=== PATIENT | male | born 1945 | race Caucasian/White ===

== ENCOUNTER → 2017-03-18 | Outpatient (CLI) | payer OTHER | END | disposition home or self-care (01) | LOC: CVU 12:52 | PROVIDERS: ATTEND Internal Medicine Cardiovascular Disease | DX: I08.3 Combined rheumatic disorders of mitral, aortic and tricuspid valves (principal); I10 Essential (primary) hypertension | CPT/HCPCS: 93306 ==

== ENCOUNTER 2017-04-14 10:31 | Day surgery (SDC) | payer OTHER ==
[~2017-04-14] VITALS: Ht 175.3 cm; Wt 106.4 kg
[~2017-04-14 10:31] MED LIST: AMLO10TA2 PO; ATOR20TA PO; DIGO250T PO; FISH1CAP PO; HYDR25TA6 PO; LABE300T PO; MULT-717 PO; WARF7.5T PO
[2017-04-14] MEDS ORDERED: FENTANYL PF 100 MCG/2ML ONE (12:00)
[2017-04-14] MEDS ORDERED: VERAPAMIL 2.5 MG/ML, 2ML ONE (12:00)
[2017-04-14] MEDS ORDERED: NITROGLYCERIN 5 MG/ML, 10ML ONE (12:00)
[2017-04-14] MEDS ORDERED: LIDOCAINE 2%, 20ML ONE (12:00)
[2017-04-14] MEDS ORDERED: MIDAZOLAM 1 MG/ML, 5ML ONE (12:00)
[2017-04-14] MEDS ORDERED: HEPARIN 1,000 UNITS/ML, 10ML ONE (12:01)
[2017-04-14] MEDS ORDERED: SODIUM CHLORIDE 0.9% 1,000 ML IV SCH (13:13)
== END 2017-04-14 15:45 ==
LOC: CACL 10:31
PROVIDERS: ATTEND Internal Medicine Cardiovascular Disease
DX: I25.10 Atherosclerotic heart disease of native coronary artery without angina pectoris (principal); I10 Essential (primary) hypertension; E11.9 Type 2 diabetes mellitus without complications
CPT/HCPCS: 36415; 75716; 85610; 93458; 93567; 99156; C1769; C1894; J2250; J3010; J3490; Q9967; J1644

== ENCOUNTER 2017-08-19 04:40 | Inpatient (IN) | payer MEDICARE ==
[2017-08-18 14:12] LABS: MICROSCOPIC NOT IND
[2017-08-18 14:37] LABS: BASOPHILS # (AUTO) 0.04 x10^3/uL (0-0.1); BASOPHILS % (AUTO) 0 % (0-1); EOSINOPHILS # (AUTO) 0.21 x10^3/uL (0-0.4); EOSINOPHILS % (AUTO) 2 % (1-7); LYMPHOCYTES % (AUTO) 17 % (22-44); MD NO; MEAN CORPUSCULAR HEMOGLOBIN 32.5 pg (27.5-34.5); MEAN CORPUSCULAR HGB CONC 34.7 g/dL (33.2-36.2); MEAN CORPUSCULAR VOLUME 93.8 fL (81-97); MEAN PLATELET VOLUME 8.5 fL (7.4-10.4); MONOCYTES # (AUTO) 0.73 x10^3/uL (0.2-0.8); MONOCYTES % (AUTO) 8 % (2-9); NEUTROPHILS # (AUTO) 6.74 x10^3/uL (1.8-6.8); NEUTROPHILS % (AUTO) 72 % (42-75); PLATELET COUNT 212 x10^3/uL (130-400); RED BLOOD COUNT 4.93 x10^6/uL (4.38-5.82); RED CELL DISTRIBUTION WIDTH 14.1 % (9.4-14.8)
[2017-08-18 14:46] LABS: ALANINE AMINOTRANSFERASE 33 U/L (12-78); ALBUMIN 4.2 g/dL (3.4-5.0); ANION GAP 6 mmol/L (5-15); CALCIUM 9.5 mg/dL (8.5-10.1); CHLORIDE 106 mmol/L (98-107); CREATININE 1.01 mg/dL (0.7-1.3)
[2017-08-18 14:48] LABS: ALKALINE PHOSPHATASE 91 U/L (45-117); BILIRUBIN,TOTAL 3.7 mg/dL (0.2-1.0); INTERNATIONAL NORMALIZED RATIO 1.2 (0.93-1.1); PROTHROMBIN TIME 12.4 Seconds (9.6-11.5); TOTAL PROTEIN 7.3 g/dL (6.4-8.2)
[2017-08-18 15:17] LABS: HEMOGLOBIN A1C 5.4 % (4.2-6.3)
[~2017-08-19] VITALS: Ht 175.3 cm; Wt 110.2 kg
[2017-08-19 04:50] VITALS: BP_SYST 145; BP_SYST 150; BP_DIAS 87; BP_DIAS 89
[2017-08-19] MEDS ORDERED: DO NOT GIVE MC SCH (05:00)
[2017-08-19] MEDS ORDERED: ALBUMIN HUMAN 5% 500 ML IV PRN (05:00)
[2017-08-19] MEDS ORDERED: INSULIN LISPRO 100 UNITS/ML, PEN SQ-INSULIN SCH (05:00)
[2017-08-19] MEDS ORDERED: CHLORHEXIDINE 15 ML BOTTLE MM SCH (05:00)
[2017-08-19] MEDS ORDERED: MIDAZOLAM 10MG/2 ML ONE (06:51)
[2017-08-19] MEDS ORDERED: SUFentanil 50 MCG/ML, 5ML ONE (06:51)
[2017-08-19] MEDS ORDERED: EPINEPHRINE 2 MG in SODIUM CHLORIDE 0.9% 248 ML IV SCH (07:30)
[2017-08-19] MEDS ORDERED: POTASSIUM CHLORIDE 80 MEQ, SODIUM BICARBONATE 8.4% 10 MEQ, MAGNESIUM SULFATE 0.5 GM, LI... IV PRN (07:30)
[2017-08-19] MEDS ORDERED: REGULAR INSULIN 62.5 UNITS in SODIUM CHLORIDE 0.9% 249.375 ML IV PRN ×2 (07:30→09:21)
[2017-08-19] MEDS ORDERED: MANNITOL PMX 20% 500 ML IVPB PRN (07:30)
[2017-08-19] MEDS ORDERED: DEXMEDETOMIDINE 200 MCG in SODIUM CHLORIDE 0.9% 48 ML IV SCH (07:30)
[2017-08-19] MEDS ORDERED: VANCOMYCIN 1,600 MG in SODIUM CHLORIDE 0.9% 250 ML IV PRN (07:30)
[2017-08-19] MEDS ORDERED: CEFUROXIME 1.5 GM in SODIUM CHLORIDE 0.9% 50 ML IVPB PRN (07:30)
[2017-08-19] MEDS ORDERED: PHENYLEPHRINE 10 MG in SODIUM CHLORIDE 0.9% 249 ML IV PRN ×2 (07:30→09:21)
[2017-08-19] MEDS ORDERED: MUPIROCIN OINT 2%, 22GM TP SCH (09:00)
[2017-08-19] MEDS ORDERED: SODIUM CHLORIDE FLUSH 10ML SYR IVF SCH (09:00)
[2017-08-19] MEDS: DOCUSATE 100 MG CAPSULE PO SCH ×2 (09:00→21:18)
[2017-08-19] MEDS ORDERED: DOBUTAMINE 250 MG in SODIUM CHLORIDE 0.9% 230 ML IV PRN (09:21)
[2017-08-19] MEDS ORDERED: VASOPRESSIN 50 UNIT in SODIUM CHLORIDE 0.9% 250 ML IV PRN (09:21)
[2017-08-19] MEDS ORDERED: SODIUM CHLORIDE 0.9% 1,000 ML IV PRN (09:21)
[2017-08-19] MEDS ORDERED: NITROGLYCERIN/D5W PMX 240 ML IV PRN (09:21)
[2017-08-19] MEDS ORDERED: DEXMEDETOMIDINE 200 MCG in SODIUM CHLORIDE 0.9% 48 ML IV PRN (09:21)
[2017-08-19] MEDS ORDERED: INSULIN REGULAR 100 UNITS/ML, 3ML VIAL IVPush PRN (09:30)
[2017-08-19] MEDS ORDERED: BISACODYL 5 MG EC TABLET PO PRN (09:30)
[2017-08-19] MEDS ORDERED: EPINEPHRINE 2 MG in SODIUM CHLORIDE 0.9% 248 ML IV PRN (09:30)
[2017-08-19] MEDS ORDERED: BISACODYL 10 MG SUPP PR PRN (09:30)
[2017-08-19] MEDS ORDERED: MIDAZOLAM 1 MG/ML, 5ML IVPush PRN (09:30)
[2017-08-19] MEDS ORDERED: SODIUM BICARB 8.4%, 50ML SYRINGE IV PRN (09:30)
[2017-08-19] MEDS ORDERED: LACTATED RINGERS 1,000 ML IV PRN (09:30)
[2017-08-19] MEDS: CHLORHEXIDINE 15 ML BOTTLE MM SCH (09:30)
[2017-08-19] MEDS ORDERED: DEXTROSE 50%, 50ML SYRINGE IVPush PRN (09:30)
[2017-08-19] MEDS ORDERED: PROCHLORPERAZINE 5 MG/ML, 2ML IVPush PRN (09:30)
[2017-08-19] MEDS ORDERED: ACETAMINOPHEN 325 MG TABLET PO PRN (09:30)
[2017-08-19] MEDS ORDERED: ONDANSETRON 2MG/ML, 2ML IVPush PRN (09:30)
[2017-08-19] MEDS ORDERED: GLUCAGON 1 MG IM PRN (09:30)
[2017-08-19] MEDS ORDERED: DEXTROSE 4 GM TAB.CHEW PO PRN (09:30)
[2017-08-19] MEDS ORDERED: HYDROcodone/APAP 5/325 TABLET PO PRN (09:30)
[2017-08-19] MEDS ORDERED: ACETAMINOPHEN 650 MG SUPP PR PRN (09:30)
[2017-08-19] MEDS ORDERED: ROCURONIUM 10 MG/ML,10ML ONE (09:49)
[2017-08-19] MEDS ORDERED: PROPOFOL 10 MG/ML, 20ML ONE ×4 (09:49)
[2017-08-19] MEDS ORDERED: PROTAMINE SULFATE 10 MG/ML, 25ML ONE ×2 (09:50)
[2017-08-19] MEDS: INSULIN LISPRO 100 UNITS/ML, PEN SQ-INSULIN SCH ×3 (11:00→21:19)
[2017-08-19] MEDS ORDERED: SODIUM BICARB 8.4%, 50ML SYRINGE ONE (11:55)
[2017-08-19] MEDS ORDERED: HEPARIN 1,000 UNITS/ML, 30ML ONE (11:55)
[2017-08-19] MEDS ORDERED: ALBUMIN HUMAN 25% 50 ML ONE (11:55)
[2017-08-19] MEDS: MAGNESIUM SULFATE 1 GM in SODIUM CHLORIDE 0.9% 50 ML IVPB SCH (12:03)
[2017-08-19 12:05] LABS: GLUCOSE BY BLOOD GAS ANALYZER 137 mg/dL (70-110); POTASSIUM BY BLOOD GAS ANALYZR 4.3 mmol/L (3.6-5.5)
[2017-08-19] MEDS: morphine SULFATE 10 MG/ML, 1ML IVPush PRN ×2 (12:07→15:28)
[2017-08-19 12:13] LABS: INTERNATIONAL NORMALIZED RATIO 1.29 (0.93-1.1); PROTHROMBIN TIME 13.3 Seconds (9.6-11.5)
[2017-08-19] MEDS: KSCALE TO 4.5 IV SCH ×3 (12:48→23:05)
[2017-08-19] MEDS: OXYcodone IR 5MG TABLET PO PRN ×2 (18:20→19:16)
[2017-08-19] MEDS: CEFUROXIME 1.5 GM in SODIUM CHLORIDE 0.9% 50 ML IVPB SCH (19:18)
[2017-08-19] MEDS: VANCOMYCIN 1,600 MG in SODIUM CHLORIDE 0.9% 250 ML IVPB SCH (19:51)
[2017-08-19] MEDS: HYDROcodone/APAP 10/325 MG TABLET PO PRN (20:55)
[2017-08-19] MEDS: MUPIROCIN OINT 2%, 22GM NAS SCH (21:19)
[2017-08-19] MEDS: SODIUM CHLORIDE FLUSH 10ML SYR IVF SCH (21:20)
[2017-08-20] MEDS: CHLORHEXIDINE 15 ML BOTTLE MM SCH ×3 (00:30→20:21)
[2017-08-20] MEDS: OXYcodone IR 5MG TABLET PO PRN ×4 (00:31→20:13)
[2017-08-20] MEDS: KSCALE TO 4.5 IV SCH (03:30)
[2017-08-20 03:55] LABS: BASOPHILS % (AUTO) 0 % (0-1); EOSINOPHILS % (AUTO) 0 % (1-7); LYMPHOCYTES % (AUTO) 5 % (22-44); MD NO; MEAN CORPUSCULAR HEMOGLOBIN 32.8 pg (27.5-34.5); MEAN CORPUSCULAR HGB CONC 34.5 g/dL (33.2-36.2); MEAN CORPUSCULAR VOLUME 95.2 fL (81-97); MONOCYTES % (AUTO) 4 % (2-9); NEUTROPHILS # (AUTO) 13.84 x10^3/uL (1.8-6.8); NEUTROPHILS % (AUTO) 91 % (42-75); PLATELET COUNT 156 x10^3/uL (130-400); RED BLOOD COUNT 4.16 x10^6/uL (4.38-5.82); RED CELL DISTRIBUTION WIDTH 14.5 % (9.4-14.8)
[2017-08-20 04:02] LABS: INTERNATIONAL NORMALIZED RATIO 1.16 (0.93-1.1)
[2017-08-20 04:04] LABS: ANION GAP 7 mmol/L (5-15); CALCIUM 8.2 mg/dL (8.5-10.1); CHLORIDE 110 mmol/L (98-107)
[2017-08-20] MEDS: HYDROcodone/APAP 10/325 MG TABLET PO PRN ×3 (05:18→13:38)
[2017-08-20] MEDS: CEFUROXIME 1.5 GM in SODIUM CHLORIDE 0.9% 50 ML IVPB SCH (07:14)
[2017-08-20] MEDS: VANCOMYCIN 1,600 MG in SODIUM CHLORIDE 0.9% 250 ML IVPB SCH (08:36)
[2017-08-20] MEDS: DIGOXIN 0.25 MG TABLET PO SCH (08:37)
[2017-08-20] MEDS: AMLODIPINE 5 MG TABLET PO SCH (08:37)
[2017-08-20] MEDS: DOCUSATE 100 MG CAPSULE PO SCH ×2 (08:37→20:12)
[2017-08-20] MEDS: ASPIRIN 81 MG TABLET EC PO SCH (08:37)
[2017-08-20] MEDS: INSULIN LISPRO 100 UNITS/ML, PEN SQ-INSULIN SCH ×4 (08:38→21:00)
[2017-08-20] MEDS ORDERED: BACLOFEN 10 MG TABLET PO SCH (09:00)
[2017-08-20] MEDS ORDERED: MAGNESIUM HYDROXIDE 8%, 30ML UDC PO PRN (09:00)
[2017-08-20] MEDS: WARFARIN BIOPROSTHETIC VALVE PROTOCOL 2-3 XX SCH (09:00)
[2017-08-20] MEDS ORDERED: BACLOFEN MC SCH (09:00)
[2017-08-20] MEDS: MUPIROCIN OINT 2%, 22GM NAS SCH ×2 (09:00→20:20)
[2017-08-20] MEDS: LABETALOL 100 MG TABLET PO SCH ×2 (09:17→18:37)
[2017-08-20] MEDS: SODIUM CHLORIDE FLUSH 10ML SYR IVF SCH ×3 (09:17→21:00)
[2017-08-20] MEDS ORDERED: FUROSEMIDE 20 MG/2 ML IV ONE (10:00)
[2017-08-20] MEDS: MAGNESIUM SULFATE 1 GM in SODIUM CHLORIDE 0.9% 50 ML IVPB SCH (10:42)
[2017-08-20] MEDS ORDERED: WARFARIN 5 MG TABLET PO-COUM ONE (18:00)
[2017-08-20] MEDS: POTASSIUM CHLORIDE 10 MEQ TABLET.ER PO SCH (18:35)
[2017-08-20] MEDS: FUROSEMIDE 20 MG/2 ML IV SCH (18:38)
[2017-08-20 20:00] VITALS: BP 143/92
[2017-08-20] MEDS: ATORVASTATIN 20 MG TABLET PO SCH (20:12)
[2017-08-21] VITALS: BP 130/73
[2017-08-21 04:19] VITALS: BP 104/59
[2017-08-21 04:34] LABS: BASOPHILS # (AUTO) 0.02 x10^3/uL (0-0.1); BASOPHILS % (AUTO) 0 % (0-1); EOSINOPHILS # (AUTO) 0.07 x10^3/uL (0-0.4); EOSINOPHILS % (AUTO) 1 % (1-7); LYMPHOCYTES # (AUTO) 1.05 x10^3/uL (1-3.4); LYMPHOCYTES % (AUTO) 7 % (22-44); MD NO; MEAN CORPUSCULAR HEMOGLOBIN 33.2 pg (27.5-34.5); MEAN CORPUSCULAR VOLUME 94.9 fL (81-97); MEAN PLATELET VOLUME 8.5 fL (7.4-10.4); MONOCYTES # (AUTO) 0.97 x10^3/uL (0.2-0.8); MONOCYTES % (AUTO) 6 % (2-9); NEUTROPHILS # (AUTO) 12.98 x10^3/uL (1.8-6.8); NEUTROPHILS % (AUTO) 86 % (42-75); PLATELET COUNT 149 x10^3/uL (130-400); RED BLOOD COUNT 3.98 x10^6/uL (4.38-5.82); RED CELL DISTRIBUTION WIDTH 14.2 % (9.4-14.8)
[2017-08-21 04:41] LABS: ANION GAP 6 mmol/L (5-15); CALCIUM 8.2 mg/dL (8.5-10.1); CHLORIDE 101 mmol/L (98-107); CREATININE 0.98 mg/dL (0.7-1.3)
[2017-08-21 04:47] LABS: INTERNATIONAL NORMALIZED RATIO 1.05 (0.93-1.1); PROTHROMBIN TIME 10.9 Seconds (9.6-11.5)
[2017-08-21 07:20] VITALS: BP 122/81
[2017-08-21] MEDS: INSULIN LISPRO 100 UNITS/ML, PEN SQ-INSULIN SCH ×4 (08:30→19:53)
[2017-08-21] MEDS: SODIUM CHLORIDE FLUSH 10ML SYR IVF SCH ×4 (09:00→19:55)
[2017-08-21] MEDS: OXYcodone IR 5MG TABLET PO PRN ×5 (09:04→22:06)
[2017-08-21] MEDS: POTASSIUM CHLORIDE 10 MEQ TABLET.ER PO SCH ×2 (09:04→17:25)
[2017-08-21] MEDS: MUPIROCIN OINT 2%, 22GM NAS SCH ×2 (09:04→19:49)
[2017-08-21] MEDS: LABETALOL 100 MG TABLET PO SCH ×2 (09:04→17:24)
[2017-08-21] MEDS: DOCUSATE 100 MG CAPSULE PO SCH ×2 (09:04→19:49)
[2017-08-21] MEDS: ASPIRIN 81 MG TABLET EC PO SCH (09:04)
[2017-08-21] MEDS: DIGOXIN 0.25 MG TABLET PO SCH (09:05)
[2017-08-21] MEDS: AMLODIPINE 5 MG TABLET PO SCH (09:05)
[2017-08-21] MEDS: FUROSEMIDE 20 MG/2 ML IV SCH ×2 (09:06→17:27)
[2017-08-21] MEDS: WARFARIN BIOPROSTHETIC VALVE PROTOCOL 2-3 XX SCH (09:06)
[2017-08-21] MEDS: MAGNESIUM SULFATE 1 GM in SODIUM CHLORIDE 0.9% 50 ML IVPB SCH (09:39)
[2017-08-21] MEDS: CHLORHEXIDINE 15 ML BOTTLE MM SCH (12:09)
[2017-08-21 12:12] VITALS: BP 126/85
[2017-08-21] MEDS ORDERED: WARFARIN 7.5 MG TABLET PO-COUM SCH (18:00)
[2017-08-21 18:47] VITALS: BP 124/74
[2017-08-21] MEDS: ATORVASTATIN 20 MG TABLET PO SCH (19:50)
[2017-08-22] MEDS: OXYcodone IR 5MG TABLET PO PRN ×5 (02:01→21:14)
[2017-08-22] MEDS: BACLOFEN 10 MG TABLET PO PRN ×3 (02:01→14:51)
[2017-08-22 02:43] VITALS: BP 119/74
[2017-08-22 05:54] LABS: ANION GAP 3 mmol/L (5-15); CALCIUM 8.7 mg/dL (8.5-10.1); CHLORIDE 103 mmol/L (98-107)
[2017-08-22 05:55] LABS: CREATININE 0.94 mg/dL (0.7-1.3)
[2017-08-22 05:59] LABS: BASOPHILS % (AUTO) 0 % (0-1); EOSINOPHILS # (AUTO) 0.15 x10^3/uL (0-0.4); EOSINOPHILS % (AUTO) 1 % (1-7); LYMPHOCYTES # (AUTO) 1.12 x10^3/uL (1-3.4); LYMPHOCYTES % (AUTO) 11 % (22-44); MD NO; MEAN CORPUSCULAR HEMOGLOBIN 33.4 pg (27.5-34.5); MEAN CORPUSCULAR VOLUME 95.6 fL (81-97); MEAN PLATELET VOLUME 8.8 fL (7.4-10.4); MONOCYTES # (AUTO) 0.89 x10^3/uL (0.2-0.8); MONOCYTES % (AUTO) 8 % (2-9); NEUTROPHILS # (AUTO) 8.44 x10^3/uL (1.8-6.8); NEUTROPHILS % (AUTO) 80 % (42-75); PLATELET COUNT 134 x10^3/uL (130-400); RED BLOOD COUNT 3.78 x10^6/uL (4.38-5.82); RED CELL DISTRIBUTION WIDTH 15.1 % (9.4-14.8)
[2017-08-22] MEDS: INSULIN LISPRO 100 UNITS/ML, PEN SQ-INSULIN SCH (07:00)
[2017-08-22 07:54] VITALS: BP 128/78
[2017-08-22 08:04] LABS: INTERNATIONAL NORMALIZED RATIO 1.02 (0.93-1.1); PROTHROMBIN TIME 10.6 Seconds (9.6-11.5)
[2017-08-22] MEDS: MUPIROCIN OINT 2%, 22GM NAS SCH ×2 (08:09→21:00)
[2017-08-22] MEDS: DIGOXIN 0.25 MG TABLET PO SCH (08:10)
[2017-08-22] MEDS: POTASSIUM CHLORIDE 10 MEQ TABLET.ER PO SCH ×2 (08:10→17:27)
[2017-08-22] MEDS: AMLODIPINE 5 MG TABLET PO SCH (08:10)
[2017-08-22] MEDS: ASPIRIN 81 MG TABLET EC PO SCH (08:10)
[2017-08-22] MEDS: DOCUSATE 100 MG CAPSULE PO SCH ×2 (08:10→21:16)
[2017-08-22] MEDS: HYDROcodone/APAP 10/325 MG TABLET PO PRN ×2 (08:10→14:51)
[2017-08-22] MEDS: LABETALOL 100 MG TABLET PO SCH ×2 (08:11→17:28)
[2017-08-22] MEDS: SODIUM CHLORIDE FLUSH 10ML SYR IVF SCH ×4 (09:00→21:15)
[2017-08-22] MEDS: FUROSEMIDE 20 MG/2 ML IV SCH ×2 (10:00→17:29)
[2017-08-22] MEDS: CHLORHEXIDINE 15 ML BOTTLE MM SCH ×2 (13:47)
[2017-08-22 14:40] VITALS: BP 105/67
[2017-08-22] MEDS ORDERED: WARFARIN 10 MG TABLET PO-COUM SCH (18:00)
[2017-08-22 19:24] VITALS: BP 112/81
[2017-08-22] MEDS: ATORVASTATIN 20 MG TABLET PO SCH (21:16)
[2017-08-23] MEDS: OXYcodone IR 5MG TABLET PO PRN ×5 (00:51→21:16)
[2017-08-23] MEDS: CHLORHEXIDINE 15 ML BOTTLE MM SCH ×3 (00:52→21:15)
[2017-08-23 01:52] VITALS: BP 132/84
[2017-08-23] MEDS: BACLOFEN 10 MG TABLET PO PRN (03:53)
[2017-08-23] MEDS: HYDROcodone/APAP 10/325 MG TABLET PO PRN (03:53)
[2017-08-23 05:01] LABS: BASOPHILS # (AUTO) 0.06 x10^3/uL (0-0.1); BASOPHILS % (AUTO) 1 % (0-1); EOSINOPHILS # (AUTO) 0.25 x10^3/uL (0-0.4); EOSINOPHILS % (AUTO) 3 % (1-7); LYMPHOCYTES # (AUTO) 0.94 x10^3/uL (1-3.4); LYMPHOCYTES % (AUTO) 12 % (22-44); MD NO; MEAN CORPUSCULAR HEMOGLOBIN 32.5 pg (27.5-34.5); MEAN CORPUSCULAR HGB CONC 34.3 g/dL (33.2-36.2); MEAN CORPUSCULAR VOLUME 94.7 fL (81-97); MEAN PLATELET VOLUME 8.6 fL (7.4-10.4); MONOCYTES # (AUTO) 0.76 x10^3/uL (0.2-0.8); MONOCYTES % (AUTO) 9 % (2-9); NEUTROPHILS # (AUTO) 6.18 x10^3/uL (1.8-6.8); NEUTROPHILS % (AUTO) 75 % (42-75); PLATELET COUNT 148 x10^3/uL (130-400); RED CELL DISTRIBUTION WIDTH 14.8 % (9.4-14.8)
[2017-08-23 05:08] LABS: ANION GAP 3 mmol/L (5-15); CALCIUM 8.8 mg/dL (8.5-10.1); CHLORIDE 104 mmol/L (98-107); CREATININE 0.98 mg/dL (0.7-1.3)
[2017-08-23] MEDS: LABETALOL 100 MG TABLET PO SCH ×2 (08:00→18:00)
[2017-08-23 08:10] VITALS: BP 124/77
[2017-08-23] MEDS: DOCUSATE 100 MG CAPSULE PO SCH ×2 (08:11→21:15)
[2017-08-23] MEDS: DIGOXIN 0.25 MG TABLET PO SCH (08:11)
[2017-08-23] MEDS: ASPIRIN 81 MG TABLET EC PO SCH (08:11)
[2017-08-23] MEDS: AMLODIPINE 5 MG TABLET PO SCH (08:11)
[2017-08-23] MEDS: POTASSIUM CHLORIDE 10 MEQ TABLET.ER PO SCH ×2 (08:11→15:56)
[2017-08-23] MEDS: FUROSEMIDE 20 MG/2 ML IV SCH ×2 (08:12→15:56)
[2017-08-23] MEDS: SODIUM CHLORIDE FLUSH 10ML SYR IVF SCH ×4 (08:12→21:14)
[2017-08-23] MEDS: MUPIROCIN OINT 2%, 22GM NAS SCH ×2 (08:30→21:14)
[2017-08-23 11:45] LABS: INTERNATIONAL NORMALIZED RATIO 1.04 (0.93-1.1); PROTHROMBIN TIME 10.8 Seconds (9.6-11.5)
[2017-08-23 14:45] VITALS: BP 101/51
[2017-08-23] MEDS ORDERED: WARFARIN 7.5 MG TABLET PO-COUM SCH (18:00)
[2017-08-23 19:46] VITALS: BP 130/81
[2017-08-23] MEDS: ATORVASTATIN 20 MG TABLET PO SCH (21:15)
[2017-08-24 03:49] VITALS: BP 140/85
[2017-08-24] MEDS: OXYcodone IR 5MG TABLET PO PRN ×3 (04:32→12:14)
[2017-08-24 05:24] LABS: CALCIUM 8.7 mg/dL (8.5-10.1); CHLORIDE 101 mmol/L (98-107)
[2017-08-24 05:28] LABS: ANION GAP 8 mmol/L (5-15); CREATININE 0.98 mg/dL (0.7-1.3)
[2017-08-24 07:35] VITALS: BP 133/83
[2017-08-24] MEDS ORDERED: OXYC5TAB3 PO (08:05)
[2017-08-24] MEDS: FUROSEMIDE 20 MG/2 ML IV SCH (08:24)
[2017-08-24] MEDS: AMLODIPINE 5 MG TABLET PO SCH (08:28)
[2017-08-24] MEDS: DIGOXIN 0.25 MG TABLET PO SCH (08:28)
[2017-08-24] MEDS: SODIUM CHLORIDE FLUSH 10ML SYR IVF SCH ×2 (08:28)
[2017-08-24] MEDS: MUPIROCIN OINT 2%, 22GM NAS SCH (08:29)
[2017-08-24] MEDS: ASPIRIN 81 MG TABLET EC PO SCH (08:30)
[2017-08-24] MEDS: LABETALOL 100 MG TABLET PO SCH (08:30)
[2017-08-24] MEDS: DOCUSATE 100 MG CAPSULE PO SCH (08:30)
[2017-08-24] MEDS: POTASSIUM CHLORIDE 10 MEQ TABLET.ER PO SCH (08:30)
[2017-08-24] MEDS: CHLORHEXIDINE 15 ML BOTTLE MM SCH (10:59)
[2017-08-24 14:59] VITALS: BP 128/73
[2017-08-24 16:52] LABS: MICROSCOPIC NOT IND
[2017-08-24 16:55] LABS: CULTURE INDICATED? NO
== END 2017-08-24 16:08 | disposition home health service (06) | DRG 219 ==
LOC: 5SO 04:40 → CCU 08:21 → CSU 11:38 → 5SO 08-20 17:58 → DCLOUNGE 08-24 15:54
PROVIDERS: ADMIT Thoracic Surgery (Cardiothoracic Vascular Surgery); ATTEND Thoracic Surgery (Cardiothoracic Vascular Surgery)
PROC: 02580ZZ Destruction of Conduction Mechanism, Open Approach (ICD-10-PCS; 2017-08-19)
PROC: 02QX0ZZ Repair Thoracic Aorta, Ascending/Arch, Open Approach (ICD-10-PCS; 2017-08-19)
PROC: 02L70ZK Occlusion of Left Atrial Appendage, Open Approach (ICD-10-PCS; 2017-08-19)
PROC: 5A1221Z Performance of Cardiac Output, Continuous (ICD-10-PCS; 2017-08-19)
PROC: 5A2204Z Restoration of Cardiac Rhythm, Single (ICD-10-PCS; 2017-08-19)
PROC: B246ZZ4 Ultrasonography of Right and Left Heart, Transesophageal (ICD-10-PCS; 2017-08-19)
PROC: 02RF08Z Replacement of Aortic Valve with Zooplastic Tissue, Open Approach (ICD-10-PCS; principal; 2017-08-19 07:30)
DX: I08.0 Rheumatic disorders of both mitral and aortic valves (principal); J96.01 Acute respiratory failure with hypoxia; D68.69 Other thrombophilia; I48.2 Chronic atrial fibrillation; I71.2 Thoracic aortic aneurysm, without rupture; I10 Essential (primary) hypertension; G47.33 Obstructive sleep apnea (adult) (pediatric); E78.5 Hyperlipidemia, unspecified; I25.10 Atherosclerotic heart disease of native coronary artery without angina pectoris; I70.0 Atherosclerosis of aorta; Z79.01 Long term (current) use of anticoagulants; Z86.79 Personal history of other diseases of the circulatory system; Y92.89 Other specified places as the place of occurrence of the external cause; Z00.6 Encounter for examination for normal comparison and control in clinical research program
CPT/HCPCS: 36415; 36600; 71045; 71046; 80048; 80053; 81003; 82040; 82330; 82800; 82803; 82810; 82947; 82962; 83036; 83735; 84132; 84295; 85014; 85018; 85025; 85049; 85347; 85610; 85730; 86850; 86900; 86923; 87081; 88304; 88305; 88311; 93005; 93312; 93321; 93325; 93880; 94002; C1768; J0697; J1644; J1815; J2250; J2405; J2704; J2720; J3370; J3475; J3480; J3490; P9045; P9047; C1760; J0171; J1940; J2270; J2370; J7030; J7050

== ENCOUNTER 2019-12-29 07:34 | Observation (INO) | payer MEDICARE ==
[~2019-12-29] VITALS: Ht 175.3 cm; Wt 105.0 kg
[~2019-12-29 07:34] MED LIST changes: -AMLO10TA2 PO; +AMLO10TA8 PO; -DIGO250T PO; +DIGO250T3 PO; -LABE300T PO; +LABE300T2 PO; +OXYC5TAB3 PO
[2019-12-29] MEDS ORDERED: SODIUM CHLORIDE 0.9% 1,000 ML IV SCH (07:58)
[2019-12-29] MEDS ORDERED: MIDAZOLAM 1 MG/ML, 5ML ONE (08:08)
[2019-12-29] MEDS ORDERED: LIDOCAINE 1%, 20ML ONE (08:08)
[2019-12-29] MEDS ORDERED: CEFAZOLIN PMX 1GM/50ML 0 ML ONE (08:08)
[2019-12-29] MEDS ORDERED: FENTANYL PF 100 MCG/2ML ONE ×2 (08:08→10:02)
[2019-12-29] MEDS ORDERED: FURO20TA3 PO (08:09)
[2019-12-29] MEDS ORDERED: ASPI-496 PO (08:09)
[2019-12-29] MEDS ORDERED: APIX5TAB PO (08:09)
[2019-12-29] MEDS ORDERED: CEFAZOLIN 1,000 MG ONE (08:09)
[2019-12-29 08:18] VITALS: BP 158/68
[2019-12-29] MEDS ORDERED: VANCOMYCIN PMX 1GM/200ML 200 ML ONE (08:46)
[2019-12-29] MEDS ORDERED: MIDAZOLAM 1 MG/ML, 2ML ONE (10:02)
[2019-12-29] MEDS ORDERED: HYDROcodone/APAP 5/325 TABLET PO PRN (11:00)
[2019-12-29] MEDS ORDERED: ZOLPIDEM 5MG TABLET PO PRN (11:00)
[2019-12-29] MEDS: AMLODIPINE 10 MG TAB PO SCH ×2 (11:00→12:47)
[2019-12-29] MEDS ORDERED: ACETAMINOPHEN 325 MG TABLET PO PRN (11:00)
[2019-12-29] MEDS ORDERED: ONDANSETRON 2MG/ML, 2ML IV PRN (11:00)
[2019-12-29] MEDS ORDERED: HOLD MEDICATION MC PRN (11:00)
[2019-12-29] MEDS: ASPIRIN 81 MG TABLET EC PO SCH (12:47)
[2019-12-29] MEDS: FUROSEMIDE 20 MG TABLET PO SCH (12:47)
[2019-12-29] MEDS: SODIUM CHLORIDE FLUSH 10ML SYR IVF SCH ×2 (12:47→20:06)
[2019-12-29] MEDS ORDERED: POTASSIUM CHLORIDE 20 MEQ TAB.ER.PRT PO ONE (13:30)
[2019-12-29] MEDS ORDERED: FUROSEMIDE 20 MG/2 ML IV ONE (13:30)
[2019-12-29] MEDS ORDERED: POTASSIUM CHLORIDE 20 MEQ TAB.ER.PRT ONE (13:34)
[2019-12-29] MEDS ORDERED: FUROSEMIDE 20 MG/2 ML ONE (13:34)
[2019-12-29 14:50] VITALS: BP 154/60
[2019-12-29 19:51] VITALS: BP 155/78
[2019-12-29] MEDS ORDERED: ATORVASTATIN 20 MG TABLET PO SCH (21:00)
[2019-12-30 00:43] VITALS: BP 166/91
[2019-12-30 07:45] VITALS: BP 150/74
[2019-12-30] MEDS ORDERED: ACET325T26 PO (08:33)
[2019-12-30] MEDS: AMLODIPINE 10 MG TAB PO SCH (09:11)
[2019-12-30] MEDS: FUROSEMIDE 20 MG TABLET PO SCH (09:11)
[2019-12-30] MEDS: SODIUM CHLORIDE FLUSH 10ML SYR IVF SCH (09:12)
[2019-12-30] MEDS: ASPIRIN 81 MG TABLET EC PO SCH (09:12)
== END 2019-12-30 11:03 | disposition home or self-care (01) ==
LOC: CACL 07:34 → 5SO 11:07 → CACL 11:10 → 5SO 11:11 → DCLOUNGE 12-30 10:54
PROVIDERS: ADMIT Internal Medicine Clinical Cardiac Electrophysiology; ATTEND Internal Medicine Clinical Cardiac Electrophysiology
DX: I49.5 Sick sinus syndrome (principal); I48.91 Unspecified atrial fibrillation; I35.8 Other nonrheumatic aortic valve disorders; I10 Essential (primary) hypertension; Z79.899 Other long term (current) drug therapy
CPT/HCPCS: 33207; 36005; 71045; 71046; 93005; 96374; 99156; 99157; C1769; C1779; C1786; C1892; G0378; J0690; J1940; J2250; J3010; J3370; J3490; Q9967

== ENCOUNTER → 2020-03-28 | Outpatient (CLI) | payer MEDICARE ==
[~2020-03-28] MED LIST changes: +ACET325T26 PO; +APIX5TAB PO; +ASPI-496 PO; +FURO20TA3 PO
== END | disposition home or self-care (01) ==
LOC: CVU 07:54
PROVIDERS: ATTEND Internal Medicine Clinical Cardiac Electrophysiology
DX: I08.8 Other rheumatic multiple valve diseases (principal); I11.9 Hypertensive heart disease without heart failure; E78.5 Hyperlipidemia, unspecified; Z95.0 Presence of cardiac pacemaker; Z79.01 Long term (current) use of anticoagulants
CPT/HCPCS: 93306

== ENCOUNTER → 2020-05-30 | Outpatient (CLI) | payer MEDICARE ==
[~2020-05-30] MED LIST changes: +AMLO-211 PO; -AMLO10TA8 PO
[2020-05-30 15:03] LABS: BASOPHILS % (AUTO) 1 % (0-1); EOSINOPHILS % (AUTO) 4 % (1-7); LYMPHOCYTES % (AUTO) 18 % (22-44); MD NO; MEAN CORPUSCULAR HEMOGLOBIN 33.5 pg (27.5-34.5); MEAN CORPUSCULAR HGB CONC 34.9 g/dL (33.2-36.2); MEAN PLATELET VOLUME 8.4 fL (7.4-10.4); MONOCYTES % (AUTO) 8 % (2-9); NEUTROPHILS % (AUTO) 68 % (42-75); PLATELET COUNT 212 x10^3/uL (130-400); RED CELL DISTRIBUTION WIDTH 13.8 % (9.4-14.8)
[2020-05-30 15:06] LABS: ALANINE AMINOTRANSFERASE 30 U/L (12-78); ALBUMIN 3.9 g/dL (3.4-5.0); ANION GAP 5 mmol/L (5-15); CALCIUM 9.4 mg/dL (8.5-10.1); CHLORIDE 107 mmol/L (98-107); CHOLESTEROL, TOTAL 139 mg/dL (140-239); CREATININE 1.28 mg/dL (0.7-1.3)
[2020-05-30 15:08] LABS: ALKALINE PHOSPHATASE 105 U/L (45-117); BILIRUBIN,TOTAL 2.2 mg/dL (0.2-1.0); CHOL/HDL RATIO 2.1; HDL CHOL % 47 % (26-37); HDL CHOLESTEROL (DIRECT) 66 mg/dL (40-60); LDL CHOLESTEROL,CALCULATED 57 mg/dL (54-169); LDL/HDL RATIO 0.9 (0.5-3.0); TOTAL PROTEIN 8.5 g/dL (6.4-8.2); TRIGLYCERIDES 79 mg/dL (50-200); VLDL CHOLESTEROL 16 mg/dL (0-25)
== END | disposition home or self-care (01) ==
LOC: LAB 14:23
PROVIDERS: ATTEND Internal Medicine Clinical Cardiac Electrophysiology
DX: Z01.810 Encounter for preprocedural cardiovascular examination (principal); I10 Essential (primary) hypertension; G47.33 Obstructive sleep apnea (adult) (pediatric); I48.21 Permanent atrial fibrillation; I49.5 Sick sinus syndrome; I35.0 Nonrheumatic aortic (valve) stenosis; I27.29 Other secondary pulmonary hypertension; Z95.0 Presence of cardiac pacemaker
CPT/HCPCS: 36415; 80053; 80061; 85025

== ENCOUNTER 2020-09-28 19:57 | Emergency (ER) | payer MEDICARE ==
[~2020-09-28] VITALS: Ht 175.3 cm; Wt 115.8 kg
[~2020-09-28 19:57] MED LIST changes: -OXYC5TAB3 PO; +OXYC5TAB98 PO
--- NOTE | 2020-09-28 20:22 | NUR ---
Pt had fall few days ago, did not see provider. Today with increase sob, low o2 sat and pain with inspiration and palpation to Right upper chest. Pt on eloquis. Has plum size bruise to ruq, no pain with palpation to RUQ. Has pacer,hx of a fib. Placed on cr monitor, o2 3L. EKG done at triage. Speaks full sentences slightly labored. Lab here drawing blood, PCXR being done now. Call NELL franco provided. Friend at bedside.
[2020-09-28] MEDS ORDERED: SODIUM CHLORIDE FLUSH 10ML SYR IVF ONE (20:30)
--- NOTE | 2020-09-28 20:37 | NUR ---
PT TO CT
[2020-09-28 20:40] LABS: BASOPHILS % (AUTO) 1 % (0-1); EOSINOPHILS % (AUTO) 5 % (1-7); LYMPHOCYTES % (AUTO) 23 % (22-44); MEAN CORPUSCULAR HGB CONC 35.2 g/dL (33.2-36.2); MEAN PLATELET VOLUME 8.5 fL (7.4-10.4); MONOCYTES % (AUTO) 9 % (2-9); NEUTROPHILS % (AUTO) 62 % (42-75); PLATELET COUNT 224 x10^3/uL (130-400); RED BLOOD COUNT 4.43 x10^6/uL (4.38-5.82); RED CELL DISTRIBUTION WIDTH 14.1 % (9.4-14.8)
[2020-09-28 20:41] LABS: MD NO
[2020-09-28 20:51] LABS: ALBUMIN 3.6 g/dL (3.4-5.0); ANION GAP 8 mmol/L (5-15); CHLORIDE 106 mmol/L (98-107); CREATININE 1.63 mg/dL (0.7-1.3)
[2020-09-28 20:55] LABS: TROPONIN I 0.015 ng/mL (0.000-0.045)
--- NOTE | 2020-09-28 22:05 | NUR ---
ATTEMPTED TO DC PT HOME. PTS RA SPO2 80%. FAMILY TO GO HOME FOR CONCENTRATOR.
[2020-09-28 23:30] VITALS: BP 116/92
== END 2020-09-28 23:35 | disposition home or self-care (01) ==
LOC: ED 21:53
DX: S22.31XA Fracture of one rib, right side, initial encounter for closed fracture (principal); M25.511 Pain in right shoulder; R06.02 Shortness of breath; R10.9 Unspecified abdominal pain; R94.31 Abnormal electrocardiogram [ECG] [EKG]; Z95.0 Presence of cardiac pacemaker; X58.XXXA Exposure to other specified factors, initial encounter; Y93.89 Activity, other specified; Y92.89 Other specified places as the place of occurrence of the external cause; Y99.8 Other external cause status
CPT/HCPCS: 36415; 71250; 74176; 80048; 82040; 83880; 84484; 85025; 93005; 99285

== ENCOUNTER 2020-10-01 15:56 | Outpatient (CLI) | payer MEDICARE | END 2020-10-01 23:59 | disposition home or self-care (01) | LOC: CFH 15:56 | PROVIDERS: ATTEND Internal Medicine Cardiovascular Disease | DX: I08.8 Other rheumatic multiple valve diseases (principal); E78.5 Hyperlipidemia, unspecified; I11.9 Hypertensive heart disease without heart failure; I27.23 Pulmonary hypertension due to lung diseases and hypoxia | CPT/HCPCS: 93306 ==

== ENCOUNTER 2020-10-31 08:29 | Day surgery (SDC) | payer MEDICARE ==
[~2020-10-31] VITALS: Ht 175.3 cm; Wt 108.6 kg
[2020-10-31] MEDS ORDERED: PLEASE ENTER HEIGHT AND WEIGHT MC SCH (09:00)
[2020-10-31 09:01] VITALS: BP 140/82
[2020-10-31] MEDS ORDERED: CARV3.1212 PO (09:08)
[2020-10-31] MEDS ORDERED: LIDOCAINE 1%, 20ML ONE (09:15)
[2020-10-31 09:45] LABS: BASOPHILS % (AUTO) 1 % (0-1); EOSINOPHILS % (AUTO) 3 % (1-7); LYMPHOCYTES % (AUTO) 10 % (22-44); MEAN CORPUSCULAR HEMOGLOBIN 34.1 pg (27.5-34.5); MEAN CORPUSCULAR HGB CONC 35.1 g/dL (33.2-36.2); MEAN PLATELET VOLUME 8.5 fL (7.4-10.4); MONOCYTES % (AUTO) 9 % (2-9); NEUTROPHILS % (AUTO) 78 % (42-75); PLATELET COUNT 212 x10^3/uL (130-400); RED BLOOD COUNT 4.36 x10^6/uL (4.38-5.82); RED CELL DISTRIBUTION WIDTH 13.7 % (9.4-14.8)
[2020-10-31 09:51] LABS: INTERNATIONAL NORMALIZED RATIO 1.09 (0.93-1.1); PROTHROMBIN TIME 11.6 Seconds (9.6-11.5)
[2020-10-31 09:53] LABS: MD NO
[2020-10-31 09:55] LABS: ANION GAP 5 mmol/L (5-15); CALCIUM 9.5 mg/dL (8.5-10.1); CHLORIDE 105 mmol/L (98-107)
[2020-10-31] MEDS ORDERED: DIPHENHYDRAMINE 50 MG/ML, 1ML IVPush ONE (10:00)
[2020-10-31] MEDS ORDERED: LIDOCAINE 2%, 20ML ONE (10:47)
== END 2020-10-31 12:59 | disposition home or self-care (01) ==
LOC: CACL 08:29
PROVIDERS: ATTEND Internal Medicine Cardiovascular Disease
DX: I27.23 Pulmonary hypertension due to lung diseases and hypoxia (principal); I27.89 Other specified pulmonary heart diseases; I10 Essential (primary) hypertension; E78.2 Mixed hyperlipidemia; Z95.0 Presence of cardiac pacemaker; Z79.82 Long term (current) use of aspirin; Z79.01 Long term (current) use of anticoagulants; Z79.899 Other long term (current) drug therapy; Z98.890 Other specified postprocedural states; Z72.89 Other problems related to lifestyle
CPT/HCPCS: 36415; 80048; 82306; 83880; 84153; 84550; 85025; 85610; 93451; C1894; G0103